=== PATIENT | female | born 1960 | race American Indian/Alaskan Native ===

== ENCOUNTER 2021-12-05 13:00 | Emergency (ER) | payer OTHER ==
[2021-12-05 14:06] VITALS: BP 113/77
--- NOTE | 2021-12-05 14:55 | XRay Report ---
Right wrist, 3 views HISTORY: Fall COMPARISON: None FINDINGS: There is mild remote appearing deformity of the distal right radial metaphysis, likely refl ecting sequela of prior trauma. Remote appearing ulnar styloid fracture is also present. No acute fra cture is identified. Carpal alignment is maintained. No focal soft tissue abnormality. IMPRESSION: No acute findings of the right wrist. Signer Name: Kirby Gallagher MD Signed: 12/05/2021 2:50 PM Workstation Name: [id number]
--- NOTE | 2021-12-05 16:39 | Emergency Department Report ---
<DARI GONGORA - Last Filed: 12/05/21 20:05> ED Extremity Problem HPI - General Chief complaint: Extremity Injury, Upper Stated complaint: RT HAND INJURY Time Seen by Provider: 12/05/21 14:07 Source: patient Mode of arrival: Ambulatory Limitations: No Limitations - History of Present Illness Initial comments: 61-year-old black female with no past medical history presents to the emergency department for evaluation of right wrist pain. She states that about 5 months ago, she fell on her wrist and has had intermittent pain and swelling since then. MD Complaint: extremity pain -: Gradual, month(s) (5) Location: right, upper extremity (Wrist and hand) History of Same: No -: No myalgia, No arthralgia, No fever, No associated chest pain Severity scale (0 -10): 5 Quality: aching Consistency: intermittent Associated Symptoms: denies: chest pain, shortness of breath, fever, myalgias, arthralgias, rash - Related Data Previous Rx's Medication Instructions Recorded Last Taken Type Acetaminophen/Codeine [Tylenol 1 tab PO Q6H PRN #12 tab 12/05/21 Unknown Rx /Codeine # 3 tab] Naproxen [Naprosyn] 500 mg PO BID #14 tab 12/05/21 Unknown Rx ED Review of Systems Comment: All other systems reviewed and negative Constitutional: denies: chills, fever ENT: denies: congestion Respiratory: denies: shortness of breath Cardiovascular: denies: chest pain, palpitations Gastrointestinal: denies: abdominal pain, vomiting Genitourinary: denies: urgency, dysuria Musculoskeletal: denies: back pain Skin: denies: rash, lesions Neurological: denies: headache ED Past Medical Hx - Medications Home Medications: Home Medications Medication Instructions Recorded Confirmed Last Taken Type Acetaminophen/Codeine [Tylenol 1 tab PO Q6H PRN #12 tab 12/05/21 Unknown Rx /Codeine # 3 tab] Naproxen [Naprosyn] 500 mg PO BID #14 tab 12/05/21 Unknown Rx ED Physical Exam - General Limitations: No Limitations General appearance: alert, in no apparent distress - Head Head exam: Present: atraumatic, normocephalic - Eye Eye exam: Present: normal appearance. Absent: conjunctival injection - Neck Neck exam: Present: normal inspection, full ROM - Respiratory Respiratory exam: Absent: respiratory distress - Cardiovascular Cardiovascular Exam: Present: regular rate - GI/Abdominal GI/Abdominal exam: Absent: distended - Expanded Upper Extremity Exam Right Upper Arm exam: Present: normal inspection Elbow exam: Present: normal inspection Forearm Wrist exam: Present: tenderness, swelling. Absent: full ROM, abrasion, laceration, ecchymosis, deformity Hand Wrist exam: Present: tenderness, swelling. Absent: erythema Vascular: Present: Pallo, normal capillary refill, radial pulse. Absent: vascular compromise - Back Exam Back exam: Present: normal inspection - Neurological Exam Neurological exam: Present: alert, oriented X3 - Psychiatric Psychiatric exam: Present: normal affect, normal mood - Skin Skin exam: Present: warm, dry, intact, normal color - Orthopedic Splinting/Casting Injury #1 Side: right Upper Extremity Injury Location: wrist Upper Extremity Immobilizer: wrist splint (Preformed Velcro wrist splint) Additional Comments: CMS intact after application. Patient tolerated well. ED Medical Decision Making - Radiology Data Radiology results: report reviewed, image reviewed Right wrist x-ray: FINDINGS: There is mild remote appearing deformity of the distal right radial metaphysis, likely reflecting sequela of prior trauma. Remote appearing ulnar styloid fracture is also present. No acute fracture is identified. Carpal alignment is maintained. No focal soft tissue abnormality. IMPRESSION: No acute findings of the right wrist. - Medical Decision Making 61-year-old black female with no past medical history presents to the emergency department for evaluation of right wrist pain. She states that about 5 months ago, she fell on her wrist and has had intermittent pain and swelling since then. Right wrist x-ray positive for old deformity of distal right radial metaphysis, and ulnar styloid fracture. Patient placed in Velcro wrist splint and discharged home with naproxen and Tylenol 3 to use as directed. She is advised to follow-up with orthopedics for further evaluation and management. She saadia balizes understanding of and agreement with plan of care. ED Disposition Clinical Impression: Right wrist fracture Disposition: 01 HOME / SELF CARE / HOMELESS Is pt being admited?: No Does the pt Need Aspirin: No Condition: Stable Instructions: Cast or Splint Care, Adult, [id number], Ulnar Fracture Rehab- [facility] Additional Instructions: Take medications as prescribed. Follow-up with orthopedics for further evaluation and management. Return to the emergency department as needed. Prescriptions: Naproxen [Naprosyn] 500 mg PO BID #14 tab Acetaminophen/Codeine [Tylenol /Codeine # 3 tab] 1 tab PO Q6H PRN #12 tab PRN Reason: Pain , Severe (7-10) Referrals: SHRUTHI MCMANUS MD [Staff Physician] - 3-5 Days Time of Disposition: 16:39 <JEANNETTE GAGE - Last Filed: 12/24/21 16:01> ED Review of Systems ROS: Stated complaint: RT HAND INJURY Other details as noted in HPI ED Course Vital Signs 12/05/21 14:04 Temperature 97.9 F Pulse Rate 76 Respiratory 14 Rate Blood Pressure 113/77 [Right] O2 Sat by Pulse 100 Oximetry ED Medical Decision Making - Medical Decision Making Patient was managed independently by the mid level below , I was available for consult but i wasn't directly involved in the care of this patient Critical care attestation.: If time is entered above; I have spent that time in minutes in the direct care of this critically ill patient, excluding procedure time. ED Disposition Is pt being admited?: No Does the pt Need Aspirin: No
== END 2021-12-05 17:00 | disposition home or self-care (01) ==
LOC: ED 13:00
DX: S52.511A Displaced fracture of right radial styloid process, initial encounter for closed fracture (principal); S52.611A Displaced fracture of right ulna styloid process, initial encounter for closed fracture; Z79.899 Other long term (current) drug therapy; W18.39XA Other fall on same level, initial encounter; Y93.89 Activity, other specified; Y92.89 Other specified places as the place of occurrence of the external cause; Y99.8 Other external cause status
CPT/HCPCS: 99283